=== PATIENT | male | born 1980 | race American Indian/Alaskan Native ===

== ENCOUNTER 2017-08-30 12:21 | Emergency (ER) | payer SELFPAY ==
[2017-08-30 12:39] VITALS: BP 114/84
[2017-08-30] MEDS ORDERED: ZOFRAN ODT ONE (12:39)
[2017-08-30] MEDS ORDERED: ZOFRAN ODT PO ONE (13:05)
[2017-08-30] MEDS ORDERED: REGLAN IV ONE (15:20)
[2017-08-30] MEDS ORDERED: SUBLIMAZE IV ONE (15:20)
[2017-08-30] MEDS ORDERED: NACL 0.9% 1000 ML 1,000 ML IV ONE (15:20)
--- NOTE | 2017-08-30 15:21 | Emergency Department Report ---
Blank Doc - Documentation Documentation: Patient is 37-year-old male presents with nausea and vomits a lot for last 3 days. Patient states pain is severe in the epigastric quadrant. Patient states he self been vomiting coffee-ground emesis. I'll give IV pain medicine, IV antiemetic and I will order CT scan of the abdomen and CBC and CMP.
[2017-08-30 15:46] LABS: Basophils # (Auto) 0.1 K/mm3 (0.0-0.1); Eosinophils # (Auto) 0.1 K/mm3 (0.0-0.4); Eosinophils % (Auto) 0.6 % (0.0-4.3); Hematocrit 43.9 % (35.5-45.6); Hemoglobin 14.8 gm/dl (11.8-15.2); Lymphocytes # (Auto) 1.8 K/mm3 (1.2-5.4); Lymphocytes % (Auto) 13.3 % (13.4-35.0); Mean Corpuscular HGB Conc 34 % (32-34); Mean Corpuscular Hemoglobin 31 pg (28-32); Mean Corpuscular Volume 93 fl (84-94); Monocytes # (Auto) 0.8 K/mm3 (0.0-0.8); Monocytes % (Auto) 5.7 % (0.0-7.3); Platelet Count 401 K/mm3 (140-440); Red Cell Distribution Width 12.9 % (13.2-15.2)
[2017-08-30 15:52] LABS: Alanine Aminotransferase 14 units/L (7-56); Albumin 4.3 g/dL (3.9-5); BUN/Creatinine Ratio 10; Blood Urea Nitrogen 9 mg/dL (9-20); Calcium 9.1 mg/dL (8.4-10.2); Hemolysis Index 12
[2017-08-30] MEDS ORDERED: K-DUR PO ONE (16:01)
[2017-08-30] MEDS ORDERED: NACL ONE (16:33)
--- NOTE | 2017-08-30 17:31 | Cat Scan Report ---
FINAL REPORT EXAM: CT ABDOMEN PELVIS W CON HISTORY: epigastric abdominal pain TECHNIQUE: CT examination of the ABDOMEN after IV contrast CT examination of the PELVIS after IV contrast PRIORS: None. FINDINGS: Normal-appearing liver, gallbladder, adrenals, pancreas, and spleen. Intact normal caliber abdominal aorta and IVC. Early contrast excretion with normal-appearing kidneys and visible ureteral segments. Intact anterior abdominal wall. No retroperitoneal adenopathy. No evidence of mesenteric mass. Normal-appearing stomach and duodenum. No small bowel distention in the abdomen and pelvis. No pelvic free fluid. Normal-appearing rectum, prostate, and seminal vesicles. Normal-appearing sigmoid colon. No gross ascites, free air, or colonic distention. No focal abnormality in cecum and terminal ileum. Appendix not separately visualized. No pericecal inflammation. Slight to moderate diffuse wall thickening in the urinary bladder is nonspecific. There is prominent stool and caliber in the ascending and transverse colon most compatible with moderate constipation IMPRESSION: Diffuse urinary bladder wall thickening may be artifact of decompression. Consider also cystitis Prominent stool most compatible with moderate proximal constipation
--- NOTE | 2017-08-30 17:42 | Emergency Department Report ---
ED General Adult HPI - General Chief complaint: Abdominal Pain Stated complaint: NAUSEA/VOMITING Time Seen by Provider: 08/30/17 16:00 Source: patient Mode of arrival: Ambulatory Limitations: No Limitations - History of Present Illness Initial comments: Patient is a 37-year-old male no significant past medical history who presents with abdominal pain has been going on for the last couple days. Patient's abdominal pain is a 7 out of 10 is located in the lower abdomen. Patient also states he has some nausea and vomiting. He states he hasn't been able to keep any oral foods down. - Related Data Previous Rx's Medication Instructions Recorded Last Taken Type Promethazine [Phenergan TAB] 25 mg PO Q6HR PRN #30 tab 08/30/17 Unknown Rx Allergies Allergy/AdvReac Type Severity Reaction Status Date / Time No Known Allergies Allergy Unverified 08/30/17 12:35 ED Review of Systems ROS: Stated complaint: NAUSEA/VOMITING Other details as noted in HPI Constitutional: denies: chills, fever Eyes: denies: eye pain, eye discharge, vision change ENT: denies: ear pain, throat pain Respiratory: denies: cough, shortness of breath, wheezing Cardiovascular: denies: chest pain, palpitations Endocrine: no symptoms reported Gastrointestinal: abdominal pain, nausea, vomiting. denies: diarrhea Genitourinary: denies: urgency, dysuria Musculoskeletal: denies: back pain, joint swelling, arthralgia Skin: denies: rash, lesions Neurological: denies: headache, weakness, paresthesias Psychiatric: denies: anxiety, depression Hematological/Lymphatic: denies: easy bleeding, easy bruising ED Past Medical Hx - Past Medical History Previous Medical History?: No - Surgical History Past Surgical History?: No - Social History Smoking Status: Current Every Day Smoker Substance Use Type: None - Medications Home Medications: Home Medications Medication Instructions Recorded Confirmed Last Taken Type Promethazine [Phenergan TAB] 25 mg PO Q6HR PRN #30 tab 08/30/17 Unknown Rx ED Physical Exam - General Limitations: No Limitations General appearance: alert, in no apparent distress - Head Head exam: Present: atraumatic, normocephalic - Eye Eye exam: Present: normal appearance - ENT ENT exam: Present: mucous membranes moist - Neck Neck exam: Present: normal inspection - Respiratory Respiratory exam: Present: normal lung sounds bilaterally. Absent: respiratory distress - Cardiovascular Cardiovascular Exam: Present: regular rate, normal rhythm. Absent: systolic murmur, diastolic murmur, rubs, gallop - GI/Abdominal GI/Abdominal exam: Present: soft, normal bowel sounds - Rectal Rectal exam: Present: deferred - Extremities Exam Extremities exam: Present: normal inspection - Back Exam Back exam: Present: normal inspection - Neurological Exam Neurological exam: Present: alert, oriented X3 - Psychiatric Psychiatric exam: Present: normal affect, normal mood - Skin Skin exam: Present: warm, dry, intact, normal color. Absent: rash ED Course Vital Signs 08/30/17 12:35 Temperature 98.9 F Pulse Rate 91 H Respiratory 18 Rate Blood Pressure 114/84 O2 Sat by Pulse 100 Oximetry ED Medical Decision Making - Lab Data Result diagrams: 08/30/17 15:26 08/30/17 15:26 Cdx: Gastritis ddx: Appendicitis, Pancreatitis I will get ct scan of abdomen, IV fluids, IV pain medication and anti-emetic medication . Discussed outpatient followup with patient and patient agrees plan to be discharged additional verbal discharge instructions were given. - Radiology Data Radiology results: report reviewed, image reviewed CT scan of abdomen shows no acute pathology Critical care attestation.: If time is entered above; I have spent that time in minutes in the direct care of this critically ill patient, excluding procedure time. ED Disposition Clinical Impression: Abdominal pain Qualifiers: Abdominal location: upper abdomen, unspecified Qualified Code(s): R10.10 - Upper abdominal pain, unspecified Nausea and vomiting Qualifiers: Vomiting type: unspecified Vomiting Intractability: non-intractable Qualified Code(s): R11.2 - Nausea with vomiting, unspecified Disposition: DC-01 TO HOME OR SELFCARE Is pt being admited?: No Does the pt Need Aspirin: No Condition: Stable Instructions: Abdominal Pain (ED) Prescriptions: Promethazine [Phenergan TAB] 25 mg PO Q6HR PRN #30 tab PRN Reason: Nausea Referrals: [facility] MD [Staff Physician] - 3-5 Days
== END 2017-08-30 18:26 | disposition home or self-care (01) ==
LOC: ED 12:21
DX: R10.10 Upper abdominal pain, unspecified (principal); R11.2 Nausea with vomiting, unspecified; F17.200 Nicotine dependence, unspecified, uncomplicated
CPT/HCPCS: 36415; 74177; 80053; 85025; 96361; 96374; 96375; 99284; J2765; J3010; J7030; Q9967; Q0162